=== PATIENT | female | born 1985 | race African-American/Black ===

== ENCOUNTER 2023-02-04 00:38 | Emergency (ER) | payer OTHER ==
[~2023-02-04] VITALS: Ht 157.5 cm; Wt 67.6 kg
[2023-02-04 00:47] VITALS: BP 112/70; TEMP 98; O2SAT 99
== END 2023-02-04 05:26 | disposition home or self-care (01) ==
LOC: ER 00:51
DX: F10.129 Alcohol abuse with intoxication, unspecified (principal); Y90.9 Presence of alcohol in blood, level not specified
CPT/HCPCS: 82962-TC